=== PATIENT | male | born 1965 | race African-American/Black ===

== ENCOUNTER 2020-02-08 14:25 | Emergency (ER) | payer MEDICAID ==
[~2020-02-08] VITALS: Ht 185.4 cm; Wt 102.0 kg
[2020-02-08] MEDS ORDERED: KETOROLAC 30MG/ML VIAL IV ONE (15:15)
[2020-02-08 15:42] LABS: BASOPHILS % 0.3 % (0.0-2.0); EOSINOPHILS % 0.5 % (0.0-5.0); HEMATOCRIT. 43.9 % (42.0-52.0); HEMOGLOBIN. 14.9 g/dL (14.0-18.0); LYMPHOCYTES % 10.9 % (20.0-50.0); MEAN CORPUSCULAR HEMOGLOBIN 30.9 pg (28.0-32.0); MEAN CORPUSCULAR VOLUME 90.6 fL (80.0-94.0); MEAN PLATELET VOLUME 8.6 fl (7.4-10.4); MONOCYTES % 12.4 % (2.0-8.0); NEUTROPHILS % 75.9 % (40.0-76.0); PLATELET 166 x1000/uL (130-400); RED BLOOD CELL COUNT 4.84 mill/uL (4.7-6.1); RED CELL DISTRIBUTION WIDTH 14.5 % (11.6-14.6)
[2020-02-08] MEDS ORDERED: ONDANSETRON HCL 4MG/2ML INJ IV ONE (15:45)
[2020-02-08] MEDS ORDERED: MORPHINE SULFATE 4 MG/ML CPJ (NOT FOR IM USE) IV ONE (15:45)
[2020-02-08 15:50] LABS: CHLORIDE 103 mEq/L (98-107)
[2020-02-08 15:53] LABS: ETHANOL BLOOD < 10 mg/dL
[2020-02-08 16:12] LABS: PROTHROMBIN TIME 10.3 sec (9.6-11.0)
[2020-02-08 16:54] LABS: *COCAINE SCREEN URINE PRESUMTIVE POSITIVE (NEGATIVE); CANNABINOID URINE SCREEN NEGATIVE (NEGATIVE); METHADONE URINE SCREEN NEGATIVE (NEGATIVE); OPIATES URINE SCREEN NEGATIVE (NEGATIVE); PHENCYCLIDINE URINE SCREEN NEGATIVE (NEGATIVE)
[2020-02-08 16:55] LABS: *AMPHETAMINES SCREEN URINE NEGATIVE (NEGATIVE); *BARBITURATES SCREEN URINE NEGATIVE (NEGATIVE); *BENZODIAZEPINES SCREEN URINE NEGATIVE (NEGATIVE)
[2020-02-08 18:32] VITALS: BP 132/73
== END 2020-02-08 18:36 | disposition home or self-care (01) ==
LOC: ER 14:53
DX: M79.642 Pain in left hand (principal); F14.10 Cocaine abuse, uncomplicated
CPT/HCPCS: 36415; 71045; 73130; 80053; 80305; 80320; 83605; 84145; 84550; 85025; 85610; 87040; 87086; 93005; 96374; 96375; 99285; J1885; J2270; J2405; G0480

== ENCOUNTER 2020-02-29 13:25 | Emergency (ER) | payer SELFPAY ==
[~2020-02-29] VITALS: Ht 188 cm; Wt 100.0 kg
[2020-02-29] MEDS ORDERED: KETOROLAC 30MG/ML VIAL IM ONE (14:30)
[2020-02-29 15:03] VITALS: BP 141/90
== END 2020-02-29 15:05 | disposition home or self-care (01) ==
LOC: ER 13:25
DX: G89.29 Other chronic pain (principal); M54.9 Dorsalgia, unspecified
CPT/HCPCS: 96372; 99283; J1885

== ENCOUNTER 2022-07-29 00:22 | Emergency (ER) | payer MEDICAID ==
[~2022-07-29] VITALS: Ht 182.9 cm; Wt 105.0 kg
[2022-07-29 00:24] VITALS: BP 160/82
== END 2022-07-29 02:50 | disposition left against medical advice (07) ==
LOC: ER 00:22
DX: Z53.21 Procedure and treatment not carried out due to patient leaving prior to being seen by health care provider (principal)